=== PATIENT | male | born 1970 | race Caucasian/White ===

== ENCOUNTER 2024-09-28 08:38 | Emergency (ER) | payer MEDICARE, SELFPAY ==
[2024-09-28 08:47] VITALS: BP 165/85; PULSE 86; RESP 20; TEMP 36.7; O2SAT 99
--- NOTE | 2024-09-28 08:54 | ED.GENADULT ---
HPI - General Adult General Chief complaint: Psychiatric Symptoms Stated complaint: took 10 metformin pills Time Seen by Provider: 09/28/24 08:43 History of Present Illness HPI narrative: 54 Year old male presenting to the emergency department for evaluation for an intentional ingestion. Patient states he was on the phone with his brother and suspects that he may have misunderstood His brother. He was initially concerned that his nephew was going to come over to harm him, he no longer thinks that is the case. Patient no longer wishes to harm himself. Patient does have prior history of self-harm and states this is the 3rd time in a short period of time. Patient states the last time was approximately 1 month ago. Patient denies any suicidal ideation at this time. Patient is remorseful about taking the metformin Related Data Allergies Allergy/AdvReac Type Severity Reaction Status Date / Time erythromycin base Allergy Mild RASH Verified 09/28/24 09:12 Review of Systems Review of Systems: All systems reviewed & are unremarkable except as noted in HPI and below Exam Narrative: APPEARANCE: tearful affect HEAD: normocephalic, atraumatic. EYES: PERRLA/EOMI, conjunctivae clear. NOSE: Normal no drainage EARS:TMS clear with good light reflex. THROAT: Pharynx clear, no exudate. NECK: Supple. No adenopathy, no masses. RESPIRATORY: Airway patent, respirations nonlabored. Clear to auscultation bilaterally, no rales, rhonchi, wheezing. CARDIOVASCULAR: Regular rate and rhythm without murmurs rubs or gallops. ABDOMINAL: Soft, nontender, nondistended, normal bowel sounds MUSCULOSKELETAL: Moves all extremities. Strength/ROM intact, No edema, No calf tenderness. NEURO: Alert. Cranial nerves II through XII intact. grossly intact SKIN: Warm, dry. Normal Color Course Vital Signs Vital signs: Vital Signs Temperature 98.1 F 09/28/24 08:47 Pulse Rate 86 09/28/24 08:47 Respiratory Rate 20 09/28/24 08:47 Blood Pressure 165/85 H 09/28/24 08:47 Pulse Oximetry 99 09/28/24 08:47 Temperature 98.1 F 09/28/24 08:47 Pulse Rate 86 09/28/24 08:47 Respiratory Rate 20 09/28/24 08:47 Blood Pressure 165/85 H 09/28/24 08:47 Pulse Oximetry 99 09/28/24 08:47 Medical Decision Making [facility] Narrative Medical decision making narrative: 54-year-old male presents to the emergency department for evaluation after intentional ingestion of 10 metformin. poison Control was consulted they felt the patient would be medically cleared after approximately 10 40. Patient is afebrile with no leukocytosis and hemoglobin of 14.5 eyes. Patient has INR 0.9 and no other acute abnormalities on the CMP, patient's lactic acid is 2.7 was treated with a L of IV fluid. Urine showed no evidence of infection and patient was negative for salicylates acetaminophen and ethyl alcohol. On re-evaluation patient states he does feel improved and still remorseful about his suicide attempt. patient was medically cleared by poison Control. Patient was evaluated by crisis. Crisis feels patient is safe to sign a safety plan and to be discharged home. Patient is in agreement with this plan. patient was well-appearing at time of discharge from the emergency department. Differential Diagnosis Differential Diagnosis: Suicidal, intentional ingestion, Vital Signs Vital Signs: Vital Signs Temperature 98.1 F 09/28/24 08:47 Pulse Rate 86 09/28/24 08:47 Respiratory Rate 20 09/28/24 08:47 Blood Pressure 165/85 H 09/28/24 08:47 Pulse Oximetry 99 09/28/24 08:47 Temperature 98.1 F 09/28/24 08:47 Pulse Rate 86 09/28/24 08:47 Respiratory Rate 20 09/28/24 08:47 Blood Pressure 165/85 H 09/28/24 08:47 Pulse Oximetry 99 09/28/24 08:47 Lab Data Lab results reviewed: Yes I reviewed the patient's lab results. 09/28/24 09:22 09/28/24 09:22 Labs: Lab Results 09/28/24 09/28/24 09/28/24 Range/Units 08:58 09:22 11:13 WBC 8.5 (4.5-10.0) K/mm3 RBC 4.84 (4.6-6.20) M/mm3 Hgb 14.5 (14.0-18.0) g/dL Hct 43.1 (42.0-52.0) % MCV 89.0 (80-100) fl MCH 30.0 (26-34) pg MCHC 33.6 (32-36) g/dl RDW 13.5 (11.5-14.5) % Plt Count 335 (150-375) k/mm3 MPV 8.1 (7.4-10.4) fl Immature Gran % (Auto) 0.5 (0-0.5) % Neut % (Auto) 58.4 (45.5-73.1) % Lymph % (Auto) 30.8 (18.3-44.2) % [place] % (Auto) 8.5 (2.6-8.5) % Eos % (Auto) 1.4 (0-4.4) % Baso % (Auto) 0.4 (0.2-1.2) % Lymph # (Auto) 2.60 (0.9-3.2) K/mm3 [place] # (Auto) 0.7 H (0.1-0.6) K/mm3 Eos # (Auto) 0.1 (0-0.3) K/mm3 Baso # (Auto) 0.0 (0.0-0.1) K/mm3 Abs Immat Gran (auto) 0.04 H (0.00-0.031) K/mm3 Absolute Neuts (auto) 4.9 (1.3-6.7) K/mm3 Absolute Nucleated RBC 0.000 (0.0-0.012) K/mm3 Nucleated RBC % 0.0 (0.0-0.2) % PT 12.7 (11.1-14.7) Seconds INR 0.9 APTT 25.8 (22.3-36.8) Seconds Sodium 132 L (137-145) mmol/L Potassium 4.3 (3.4-5.0) mmol/L Chloride 96 L (98-107) mmol/L Carbon Dioxide 25 (22-30) mmol/L Anion Gap 11 (4-12) mmol/L BUN 7 L (9-20) mg/dL Creatinine 0.50 L (0.7-1.3) mg/dL Estim Creat Clear Calc 157 ml/min Estimated GFR > 60 (59 - ) Glucose 126 H (65-110) mg/dL POC Capillary Glucose 135 H 117 H (65-105) mg/dl Lactic Acid 2.7 H (0.7-2.0) mmol/L Calcium 9.2 (8.4-10.2) mg/dL Total Bilirubin 0.3 (0.2-1.3) mg/dL AST 24 (17-59) U/L ALT 17 (6-50) U/L Alkaline Phosphatase 114 (38-126) U/L Total Protein 8.0 (6.3-8.2) g/dL Albumin 4.4 (3.5-5.1) g/dL Urine Color Yellow (Yellow) Urine Appearance Clear (Clear) Urine pH 7.0 (5.0-9.0) Ur Specific [place] 1.008 (1.001-1.035) Urine Protein Negative (Negative) mg/dL Urine Glucose (UA) Negative (Negative) mg/dL Urine Ketones Negative (Negative) mg/dL Ur Blood (Man) Negative (Negative) Urine Nitrate Negative (Negative) Urine Bilirubin Negative (Negative) Urine Urobilinogen 0.2 (<2.0) mg/dL Leukocyte Esterase Rfl Negative (Negative) THANIA/UL Salicylates < 1.0 L (2-20) mg/dL Urine Opiates Screen Negative (Negative) Urine Methadone Screen Negative (Negative) Acetaminophen < 10 L (10-30) ug/mL Ur Barbiturates Screen Negative (Negative) Ur Phencyclidine Scrn Negative (Negative) Ur Amphetamine Screen Negative (Negative) U Benzodiazepines Scrn Negative (Negative) Urine Cocaine Screen Negative (Negative) U Cannabinoids Screen Negative (Negative) Ethyl Alcohol < 10 (<10) mg/dL SARS-CoV-2 RNA (RT-PCR) (Negative) 09/28/24 Range/Units 11:35 WBC (4.5-10.0) K/mm3 RBC (4.6-6.20) M/mm3 Hgb (14.0-18.0) g/dL Hct (42.0-52.0) % MCV (80-100) fl MCH (26-34) pg MCHC (32-36) g/dl RDW (11.5-14.5) % Plt Count (150-375) k/mm3 MPV (7.4-10.4) fl Immature Gran % (Auto) (0-0.5) % Neut % (Auto) (45.5-73.1) % Lymph % (Auto) (18.3-44.2) % [place] % (Auto) (2.6-8.5) % Eos % (Auto) (0-4.4) % Baso % (Auto) (0.2-1.2) % Lymph # (Auto) (0.9-3.2) K/mm3 [place] # (Auto) (0.1-0.6) K/mm3 Eos # (Auto) (0-0.3) K/mm3 Baso # (Auto) (0.0-0.1) K/mm3 Abs Immat Gran (auto) (0.00-0.031) K/mm3 Absolute Neuts (auto) (1.3-6.7) K/mm3 Absolute Nucleated RBC (0.0-0.012) K/mm3 Nucleated RBC % (0.0-0.2) % PT (11.1-14.7) Seconds INR APTT (22.3-36.8) Seconds Sodium (137-145) mmol/L Potassium (3.4-5.0) mmol/L Chloride (98-107) mmol/L Carbon Dioxide (22-30) mmol/L Anion Gap (4-12) mmol/L BUN (9-20) mg/dL Creatinine (0.7-1.3) mg/dL Estim Creat Clear Calc ml/min Estimated GFR (59 - ) Glucose (65-110) mg/dL POC Capillary Glucose (65-105) mg/dl Lactic Acid (0.7-2.0) mmol/L Calcium (8.4-10.2) mg/dL Total Bilirubin (0.2-1.3) mg/dL AST (17-59) U/L ALT (6-50) U/L Alkaline Phosphatase (38-126) U/L Total Protein (6.3-8.2) g/dL Albumin (3.5-5.1) g/dL Urine Color (Yellow) Urine Appearance (Clear) Urine pH (5.0-9.0) Ur Specific [place] (1.001-1.035) Urine Protein (Negative) mg/dL Urine Glucose (UA) (Negative) mg/dL Urine Ketones (Negative) mg/dL Ur Blood (Man) (Negative) Urine Nitrate (Negative) Urine Bilirubin (Negative) Urine Urobilinogen (<2.0) mg/dL Leukocyte Esterase Rfl (Negative) THANIA/UL Salicylates (2-20) mg/dL Urine Opiates Screen (Negative) Urine Methadone Screen (Negative) Acetaminophen (10-30) ug/mL Ur Barbiturates Screen (Negative) Ur Phencyclidine Scrn (Negative) Ur Amphetamine Screen (Negative) U Benzodiazepines Scrn (Negative) Urine Cocaine Screen (Negative) U Cannabinoids Screen (Negative) Ethyl Alcohol (<10) mg/dL SARS-CoV-2 RNA (RT-PCR) Negative (Negative) Discharge Plan Discharge Clinical Impression: Emotional upset Patient Disposition: Home, Self-Care Condition: Stable Instructions: Antibiotic Form, Help Prevent Suicide (ED) Additional Instructions: have close follow-up with your primary care physician. If you do not feel safe at home then please call or return to the emergency department. Follow-up/Referrals: UNKNOWN,DOCTOR [Primary Care Provider] -
[2024-09-28 09:00] LABS: Glucose Point of Care 135 mg/dl (65-105)
--- NOTE | 2024-09-28 09:31 | PC.NURSE ---
This RN notified Poison Control and spoke with MIRIAN Braxton. Poison control states that pt did not take a toxic dose and will possibly have side effects of vomiting and diarrhea. Advises to draw CMP, tylenol/ASA, and lactic. Metformin ER peaks at 6 hours.
[2024-09-28 09:33] LABS: Basophils Percent Auto 0.4 % (0.2-1.2); Eosinophils Absolute Auto 0.1 K/mm3 (0-0.3); Eosinophils Percent Auto 1.4 % (0-4.4); Hematocrit 43.1 % (42.0-52.0); Hemoglobin 14.5 g/dL (14.0-18.0); Immature Granulocyte Absolute 0.04 K/mm3 (0.00-0.031); Immature Granulocyte Percent A 0.5 % (0-0.5); Lymphocytes Percent Auto 30.8 % (18.3-44.2); Mean Corpuscular HGB Conc 33.6 g/dl (32-36); Mean Platelet Volume 8.1 fl (7.4-10.4); Monocytes Absolute Auto 0.7 K/mm3 (0.1-0.6); Monocytes Percent Auto 8.5 % (2.6-8.5); Neutrophils Absolute Auto 4.9 K/mm3 (1.3-6.7); Neutrophils Percent Auto 58.4 % (45.5-73.1); Platelet Count Result 335 k/mm3 (150-375); Red Blood Count 4.84 M/mm3 (4.6-6.20); Red Cell Distribution Width 13.5 % (11.5-14.5); White Blood Count 8.5 K/mm3 (4.5-10.0)
[2024-09-28 09:34] LABS: Add Urine Microscopic? NO; Appearance Urine Clear (Clear); Bilirubin Urine Negative (Negative); Blood Urine Negative (Negative); Color Urine Yellow (Yellow); Glucose Urine UA Negative (Negative); Ketones Urine Negative (Negative); Leukocyte Esterase Ur Negative LEU/UL (Negative); Nitrate Urine Negative (Negative); Protein Urine Negative (Negative); Specific Grav Ur 1.008 (1.001-1.035); Urobilinogen Urine 0.2 mg/dL (<2.0)
[2024-09-28 09:42] LABS: Lactic Acid Reflex 2.7 mmol/L (0.7-2.0)
[2024-09-28 09:43] LABS: Alanine Aminotransferase 17 U/L (6-50); Albumin Level 4.4 g/dL (3.5-5.1); Alkaline Phosphatase 114 U/L (38-126); Anion Gap 11 mmol/L (4-12); Aspartate Amino Transferase 24 U/L (17-59); Bilirubin,Total 0.3 mg/dL (0.2-1.3); Blood Urea Nitrogen 7 mg/dL (9-20); Calcium 9.2 mg/dL (8.4-10.2); Carbon Dioxide 25 mmol/L (22-30); Chloride 96 mmol/L (98-107); Estimated CRCL calculation 157 ml/min; Estimated Glomerular Filt Rate > 60; Glucose 126 mg/dL (65-110); Potassium 4.3 mmol/L (3.4-5.0); Sodium 132 mmol/L (137-145)
[2024-09-28 09:54] LABS: INR 0.9; Prothrombin Time 12.7 Seconds (11.1-14.7)
[2024-09-28 09:55] LABS: Partial Thromboplastin Time 25.8 Seconds (22.3-36.8)
[2024-09-28] MEDS: SODIUM CHLORIDE 0.9% IV 1,000 ML 999 ML IV CONT (09:56)
[2024-09-28 10:13] LABS: Acetaminophen < 10 ug/mL (10-30); Ethanol < 10 mg/dL (<10); Salicylate < 1.0 mg/dL (2-20)
[2024-09-28 11:15] LABS: Glucose Point of Care 117 mg/dl (65-105)
[2024-09-28 12:17] LABS: SARS-CoV-2 RNA PCR Negative (Negative)
[2024-09-28 12:29] LABS: Reflex Lactic Acid Yes or No Add Lactic
--- NOTE | 2024-09-28 14:02 | PC.NURSE ---
pt refused to have repeat labs drawn
[2024-09-28 14:14] LABS: Amphetamine Screen Urine Negative (Negative); Barbiturate Screen Urine Negative (Negative); Benzodiazepines Screen Urine Negative (Negative); Cannabinoid Screen Urine Negative (Negative); Methadone Screen Urine Negative (Negative); Opiate Screen Urine Negative (Negative); Phencyclidine Screen Urine Negative (Negative)
[2024-09-28 14:27] LABS: Cocaine Screen Urine Negative (Negative)
--- NOTE | 2024-09-28 14:36 | PC.NURSE ---
Notified [facility] of pt's discharge. Staff states they are unable to come pick pt up.
== END 2024-09-28 15:13 | disposition home or self-care (01) ==
PROVIDERS: Emergency Provider Emergency Medicine
DX: R45.89 Other symptoms and signs involving emotional state (principal); Z11.52 Encounter for screening for COVID-19; E11.9 Type 2 diabetes mellitus without complications; Z91.51 Personal history of suicidal behavior
CPT/HCPCS: 36415; 80053; 80143; 80179; 80307; 81003; 82077; 82948; 83605; 85025; 85610; 85730; 87635; 96360; 99284; J7030